=== PATIENT | female | born 2005 | race Caucasian/White ===

== ENCOUNTER 2023-06-26 18:17 | Emergency (ER) | payer SELFPAY ==
[2023-06-26 19:05] LABS: Bilirubin Neg (Negative); Blood, Urine 250 (Negative); Clarity Clear (Clear); Glucose, Urine (Dipstick) Normal (Negative); Ketone, Urine 15 mg/dL (Negative); Leukocyte Negative (Negative); Nitrite Negative (Negative); Protein, Urine (Dipstick) Negative (Neg-Trace); Specific Gravity, Urine 1.015 (1.005-1.030); Urobilinogen Normal mg/dL (Less than 2)
[2023-06-26 19:11] LABS: #Eosinphils 0.1 10x3/uL (0.0-0.5); #Monocytes 0.3 10x3/uL (0.0-1.1); #Neutrophils 3.8 10x3/uL (1.5-8.4); %Basophils 0.6 % (0.0-2.0); %Eosinophils 1.8 % (0.0-6.0); %Lymphocytes 36.2 % (18.0-47.0); Hemoglobin 12.9 g/dL (12.0-15.5); Mean Corpuscular HGB CONC 33.9 g/dL (32.0-36.0); Mean Corpuscular Hemoglobin 29.6 pg (27.0-33.0); Mean Corpuscular Volume 87.2 fl (81.6-98.3); Mean Platelet Volume 10.7 fl (7.4-10.4); Platelet Count 315 10x3/uL (150-450); RBC Distribution Width 12.9 % (11.5-14.5); Red Blood Cell (RBC) Count 4.36 10x6/uL (3.90-5.03); White Blood Cell (WBC) Count 6.8 10x3/uL (3.5-10.5)
[2023-06-26 19:42] LABS: CAUTI Indications for Culture Pregnancy; RBC/HPF 0-3 HPF (0-3); Squamous Epithelial 0-3 HPF (0-3); WBC/HPF 0-3 HPF (0-3)
[2023-06-26 19:43] LABS: Bacteria/HPF 3+ HPF (None Seen); Mucous/LPF 2+ LPF (<2+); Urine Culture Reflex Yes Yes
== END 2023-06-26 21:32 | disposition home or self-care (01) ==
LOC: CSHERS 18:17
DX: O20.0 Threatened abortion (principal); Z3A.01 Less than 8 weeks gestation of pregnancy
CPT/HCPCS: 76856; 81001; 84702; 85025; 86900; 86901; 87086